=== PATIENT | male | born 1965 | race Two or more races ===

== ENCOUNTER 2022-04-16 08:45 | Inpatient (IN) | payer OTHER ==
[~2022-04-16] VITALS: Ht 172.7 cm; Wt 88.5 kg
[2022-04-16] MEDS ORDERED: [UNRECOGNIZED DRUG - OTHER] PO (09:50)
[2022-04-16] MEDS ORDERED: CONEX TABLET1 EACH PO (09:50)
[2022-04-16] MEDS ORDERED: PROVENTIL S2 MG/5 ML PO (09:50)
[2022-04-16] MEDS ORDERED: AMBIEN5 MG PO (09:51)
[2022-04-16] MEDS ORDERED: NABUMETONE750 MG PO (09:51)
== END 2022-04-24 17:34 | disposition home or self-care (01) | DRG 470 ==
LOC: O/R 04-22 07:36 → SURH 04-22 07:36 → MEDJ 04-23 13:34 → SURH 04-23 14:57
PROVIDERS: ADMIT Orthopaedic Surgery; ATTEND Orthopaedic Surgery
PROC: 0SR90JZ Replacement of Right Hip Joint with Synthetic Substitute, Open Approach (ICD-10-PCS; principal; 2022-04-22 09:45)
DX: M16.11 Unilateral primary osteoarthritis, right hip (principal); D62 Acute posthemorrhagic anemia; M25.751 Osteophyte, right hip; M70.61 Trochanteric bursitis, right hip; Z20.822 Contact with and (suspected) exposure to COVID-19; J45.998 Other asthma